=== PATIENT | male | born 1960 | race Caucasian/White ===

== ENCOUNTER 2017-01-05 15:23 | Emergency (ER) | payer OTHER ==
[~2017-01-05] VITALS: Ht 172.7 cm; Wt 118.2 kg
[~2017-01-05 15:23] MED LIST: ALPR1TAB7 PO; AMLO10TA3 PO; BENA5TAB PO; BUPR75TA10 PO; CHOL200047 PO; CRES20T PO; EMPA10TA PO; HYDR25TA4 PO; INSU100V4 SUBQ; INSU3INS3 SUBQ; LORA1TAB PO; METF500T4 PO; METO50TA3 PO; OXYC1TAB24 PO; PANT40TA3 PO; POTA20TA16 PO; PRE10 PO; WARF5TAB7 PO; WARF7.5T4 PO; ZLP5T PO
[2017-01-05 15:27] VITALS: BP 165/81; PULSE 58; RESP 16; O2SAT 99
--- NOTE | 2017-01-05 18:22 | ED.REPORT ---
HPI-General Illness Date of Service Jan 05, 2017 ED Provider: Dr. Jono Rodriguez M.D. A 56 year old male with a history of ITP, PE, upper aortic aneurysm, and chronic back pain s/p L5-S1 diskectomy on Warfarin presents to the ED with worsening of his chronic lower back and left leg pain onset four days ago. Associated symptoms include mild urinary incontinence and gradually worsening left leg and perineum numbness over the past few years. The patient denies leg weakness, bowel incontinence, or other symptoms. He had been taking prednisone regularly until a couple of weeks ago. The patient takes prescribed Percocet for pain and has not run out of this medication. Nursing Notes Stated Complaint: BACK PAIN Chief Complaint: Back Pain or Injury Nursing Notes Reviewed: Yes Allergies: Coded Allergies: No Known Allergies (Unverified , 01/05/17) Scheduled Alprazolam (Alprazolam) 1 Mg Tablet 1 MG PO HS Amlodipine (Amlodipine) 10 Mg Tablet 10 MG PO DAILY Benazepril (Benazepril) 5 Mg Tablet 5 MG PO DAILY Bupropion (Bupropion) 75 Mg Tablet 75 MG PO DAILY Cholecalciferol (Vitamin D3) (Vitamin D3) 2,000 Unit Capsule 2,000 UNIT PO DAILY Dexamethasone (Dexamethasone) 4 Mg Tablet 4 MG PO BID Hydrochlorothiazide (Hydrochlorothiazide) 25 Mg Tablet 25 MG PO DAILY Insulin Detemir (Levemir U100 Insulin Vial) 100 Unit/1 Ml Vial 30 UNIT SUBQ HS Insuln Asp Prt/Insulin Aspart (NovoLOG 70/30 U100 Insulin Flexpen) 100 Unit/Ml Unit 15-20 UNIT SUBQ PRN SLIDING SCALE Lorazepam (Lorazepam) 1 Mg Tablet 1 MG PO with prednisone Metformin (Metformin) 500 Mg Tablet 500 MG PO BID Metoprolol Tartrate (Metoprolol Tartrate) 50 Mg Tablet 50 MG PO TID Pantoprazole DR (Pantoprazole DR) 40 Mg Tablet.dr 40 MG PO DAILY Potassium Chloride (Potassium Chloride) 20 Meq Tab.er.prt 20 MEQ PO BID TAKE WITH FOOD Prednisone (PredniSONE) 10 Mg Tablet 5 MG PO DAILY Rosuvastatin Calcium (Crestor) 20 Mg Tablet 20 MG PO DAILY Warfarin Sodium (Warfarin Sodium) 7.5 Mg Tablet 7.5 MG PO x 3 dys a week Warfarin Sodium (Warfarin Sodium) 5 Mg Tablet 5 MG PO x 4 dys a week Zolpidem (Ambien) 5 Mg Tablet 5 MG PO HS Scheduled PRN Methocarbamol (Robaxin-750) 750 Mg Tablet 1-2 TAB PO QID PRN PRN back pqin oxyCODONE-Acetaminophen 5-325 mg (oxyCODONE-Acetaminophen 5-325 mg) 1 Each Tablet 1 TAB PO Q6H PRN PRN For Pain oxyCODONE-Acetaminophen 5-325 mg (oxyCODONE-Acetaminophen 5-325 mg) 1 Each Tablet 1-2 TAB PO Q6H PRN PRN For Pain Miscellaneous Medications Empagliflozin (Jardiance) 10 Mg Tablet 10 MG PO General Time Seen by MD: 18:22 Chief Complaint Back pain Hx Obtained From: Patient Arrived By: Walk-in Sudden in Onset?: No Onset Occurred: 4 days ago (Worsening today) Symptom Duration: Since onset Location: : Back: Leg left Quality: Painful Severity: Current: Moderate Severity: Maximum: Moderate Associated with: Reports: Numb extremities (Left leg), Denies: Fever, Weakness Pertinent Negative: Relieved by nothing Recent Healthcare: No recent doctor visit Similar Sx Previous: Yes Past Medical History Past Medical History Idiopathic thrombocytopenia purpura PE on Warfarin as of 01/05/17 Chronic back pain Upper aortic aneurysm Past Surgical History L5-S1 diskectomy Smoking History Former Smoker Social History Other Social History: Good social support, Ambulatory Status Independent Review of Systems Full Review of Systems Constitutional: Denies: Fever Respiratory: Denies: Non-productive cough, Shortness of breath GI: Denies: Diarrhea Male: Reports Incontinence (Mild) Musculoskeletal: Reports: Extremity pain (Left leg) Neurologic: Reports: Numbness (Left leg and perineum), Denies: Bowel dysfunction, Weakness Complete sys rev & neg: except as marked. Physical Exam Vital Signs Vital Signs Date Time Temp Pulse Resp B/P Pulse Ox O2 Delivery O2 Flow Rate FiO2 01/05/17 20:03 68 20 153/87 99 Room Air 01/05/17 15:27 36.9 58 16 165/81 99 Room Air Initial VS: Reviewed Head / Eyes: Atraumatic, Normocephalic ENT: Conjunctiva normal, No scleral icterus Neck: Supple, Full range of motion Respiratory: Breath sounds normal, Clear to auscultation, No respiratory distress Cardiovascular: Regular rate & rhythm, Heart sounds normal Skin: Warm, Dry, No cyanosis Psychiatric: Mood/affect normal, Behavior normal, Normal thought content General/Constitutional: Awake, Alert Neurologic: Oriented X3, Speech NL, No motor deficits (Full lower extremity strength bilaterally), No sensory deficits, Reflexes equal bilat Re-Eval/Medical Decision Med Decision/Clinical Course 56-year-old with chronic back pain worsening since withdrawal from prednisone. He was on the prednisone for ITP, and recently completed a taper. He has had no acute injury or other exacerbation that he is aware of. He has had some mild urinary incontinence that has been a chronic stable findings, no new numbness or weakness. He had an MRI a few years ago that did not show any surgical disease. At this point, he is in need of repeat MRI but not on emergency basis. He is referred to his physician for evaluation and for referral to spine surgery and MRI. Home with a brief Decadron course of three days. Robaxin added to his ongoing oxycodone. Not a candidate for nonsteroidals due to his warfarin therapy. Discharged in stable condition. Source of Hx: Old records Time of Eval: 18:41 Patient Status: Condition improved Re-Evaluation/Progress Note: Discussed with patient diagnosis and plan for medication with subsequent discharge. Follow-up and return to the ER instructions given. Patient agrees with plan for care and all questions were addressed. Time of Eval: 19:58 Patient Status: Condition improved Re-Evaluation/Progress Note: Patient rechecked. Additional follow-up and return to ER instructions discussed. Counseled Regarding: Diagnosis, Need for follow-up, When/why to return to ED Discharge & Departure Primary Impression: Low back pain Chronicity: chronic Back pain laterality: unspecified Sciatica presence: with sciatica Sciatica laterality: sciatica of left side Qualified Code: M54.42 - Lumbago with sciatica, left side Additional Impressions: Sciatica Laterality: left Qualified Code: M54.32 - Sciatica, left side Lupus anticoagulant disorder Anticoagulated on Coumadin Disposition: Home Discharge Condition All VS Reviewed: Yes Condition: Improved Patient Instructions: Sciatica (ED) Additional Instructions: The progression of your symptoms over the past months, suggest that a reevaluation with MRI would be advisable. Call your doctor tomorrow morning to arrange that. The pulling of the studies to evaluate whether you have a surgically fixable lesion. He will need follow-up with your back surgeon/ neurosurgeon also. The recent taper of prednisone suggested she may have had some re-exacerbation of inflammation as your prednisone tapered off. Take Decadron one tablet twice daily for three days. He may take your oxycodone two tablets up to four times daily if needed, but I recommend you continue to use these as sparingly as possible. Begin Robaxin 1- 2 tablets four times daily for muscle spasm. Return if you have any new symptoms of concern, particularly incontinence of bowel or bladder that is new or progressive, or fixed numbness or weakness. Referrals: Bryant aMrrero MD (PCP) Kiel Lang Attestation Portions of this note were transcribed by Gina Butler. I, Dr. Rodriguez, personally performed the history, physical exam, and medical decision-making; I reviewed and confirmed the accuracy of the information in the transcribed note. Signed by: Carlos Luis, 01/05/2017, 20:20 copies to: Bryant Marrero MD; Kiel Lang Christopher W MD Jan 05, 2017 18:22 GINA BUTLER Jan 05, 2017 18:47
[2017-01-05] MEDS ORDERED: Dexamethasone 20 mg/2 mL Oral Solution PO ONE (18:50)
[2017-01-05] MEDS ORDERED: OXYC1TAB24 PO (19:51)
[2017-01-05] MEDS ORDERED: METH-313 PO (19:51)
[2017-01-05] MEDS ORDERED: DXM4T PO (19:51)
[2017-01-05 20:03] VITALS: BP 153/87; PULSE 68; RESP 20; O2SAT 99
== END 2017-01-05 20:04 | disposition home or self-care (01) ==
LOC: SED 15:23
DX: M54.42 Lumbago with sciatica, left side (principal); G89.29 Other chronic pain; D68.62 Lupus anticoagulant syndrome; R32 Unspecified urinary incontinence; R20.0 Anesthesia of skin; Z79.01 Long term (current) use of anticoagulants; Z79.84 Long term (current) use of oral hypoglycemic drugs; Z79.4 Long term (current) use of insulin; Z87.891 Personal history of nicotine dependence